=== PATIENT | female | born 1955 | race Caucasian/White ===

== ENCOUNTER → 2019-06-13 | Outpatient (CLI) | payer MEDICARE, OTHER ==
[~2019-06-13] MED LIST: HYDR-3876 PO; NITR-65 PO; TMSL.4C PO
--- NOTE | 2019-06-13 14:48 | Diagnostic Imaging Report ---
REASON FOR EXAM: LT URETERAL STONE COMPARISON: 12/04/2015. TECHNIQUE: 2 views of the abdomen FINDINGS: The bowel gas pattern is nondistended. No large collection of free intraperitoneal air is seen. Scattered small amounts of gas and fecal material are present in the colon. No abnormal extraosseous calcifications are present. The gallbladder is surgically absent. The osseous structures are age-appropriate. IMPRESSION: 1. No radiopaque foci are visualized to suggest nephrolithiasis or urolithiasis. 2. No evidence of bowel obstruction or large collection of free intraperitoneal air. Dictated by: Dictated on workstation # [id number]
== END ==
LOC: RAD 14:23
PROVIDERS: ATTEND Urology
DX: N20.1 Calculus of ureter (principal)
CPT/HCPCS: 74018

== ENCOUNTER → 2019-07-19 | Outpatient (CLI) | payer MEDICARE, OTHER ==
[~2019-07-19] MED LIST changes: +CATHETER FLUSH 10 ML SYR IV PRN; +FUROSEMIDE 40 MG/4 ML INJ (LASIX) IVP ONE; +FUROSEMIDE 40 MG/4 ML INJ (LASIX) ONE
--- NOTE | 2019-07-20 14:58 | Diagnostic Imaging Report ---
INDICATION: Obstruction. TECHNIQUE: The patient was administered 5.3 mCi of technetium 99m MAG3 intravenously and imaging over the abdomen was performed. Approximately 15 minutes into the exam, the patient was administered 40 mg of Lasix intravenously and imaging was performed. FINDINGS: Dynamic blood flow images demonstrate a fairly symmetric perfusion pattern to both kidneys. Parenchymal tubular activity appears to be fairly symmetric. There is symmetric excretion of activity into both renal collecting systems. There is slight prolonged retention of activity within the left renal collecting system compared to the right; however, there is a normal excretion curve following Lasix administration. No definite obstruction is seen. The overall differential renal function is 48% for the left and 52% for the right. IMPRESSION: Essentially unremarkable renal scan with Lasix. There may be a slightly dilated but nonobstructed system on the left. Dictated by: Dictated on workstation # [id number]
== END ==
LOC: CARD 08:33
PROVIDERS: ATTEND Urology
DX: N13.5 Crossing vessel and stricture of ureter without hydronephrosis (principal)
CPT/HCPCS: 78707